=== PATIENT | male | born 1980 | race Two or more races ===

== ENCOUNTER 2019-02-19 05:37 | Day surgery (SDC) | payer OTHER ==
[2019-02-19] VITALS (12 sets, daily range): BP systolic 102–126; BP diastolic 59–86
[~2019-02-19] VITALS: Ht 172.7 cm; Wt 86.2 kg
[2019-02-19] MEDS ORDERED: oxyCONTIN 20mg tab ORAL ONE (06:00)
[2019-02-19] MEDS ORDERED: celeBREX 200mg Cap **SURGERY PATIENTS ONLY ORAL ONE (06:00)
[2019-02-19] MEDS ORDERED: ceFAZolin 1gm IVPB IVPB ONE ×2 (06:00)
[2019-02-19] MEDS ORDERED: NKM (06:07)
[2019-02-19] MEDS ORDERED: Bacitracin 50000 Units Vial ONE (07:01)
[2019-02-19] MEDS ORDERED: NeoSporin Gu Irrig 1ml Amp IRRIG ONE (07:01)
[2019-02-19] MEDS ORDERED: fentaNYL 100 mcg/2 mL IV ONE ×2 (07:18→07:52)
--- NOTE | 2019-02-19 07:27 | Pre-Procedure Note/Attestation ---
Pre-Procedure Note/Attestation Complete Prior to Procedure Planned Procedure: left Procedure Narrative: removal of screw Indications for Procedure Pre-Operative Diagnosis: sp orif left hip with nonuniun and painful hardware Attestation I attest that I discussed the nature of the procedure; its benefits; risks and complications; and alternatives (and the risks and benefits of such alternatives ), prior to the procedure, with the patient (or the patient's legal labor service representative). I attest that, if there was a reasonable possibility of needing a blood transfusion, the patient (or the patient's legal labor service representative) was given the [facility] standardized written summary, pursuant to the [place] Blood Safety Act ([place] Health and Safety Code # 1645, as amended). I attest that I re-evaluated the patient just prior to the surgery and that there has been no change in the patient's H&P, except as documented below: Tino Alfred MD Feb 19, 2019 07:27
[2019-02-19] MEDS ORDERED: HYDROmorphone 1mg/ml Carpuject SUBQ PRN (07:30)
[2019-02-19] MEDS ORDERED: Tylenol #3 tab (300mg/30mg) ORAL PRN (07:30)
[2019-02-19] MEDS ORDERED: LR 1000ml ONE (07:30)
[2019-02-19] MEDS ORDERED: D5 1/2NS 1,000 ML IV SCH (07:30)
[2019-02-19] MEDS ORDERED: HYDROcodone/Acetamin 5/325 tab ORAL PRN (07:30)
--- NOTE | 2019-02-19 07:30 | Operative Note - PDOC ---
Operative Note Operative Note Pre-op Diagnosis: sp orif left hip with nonuniun and painful hardware Procedure: see op report Post-op Diagnosis: same as pre-op plus Operative Findings: consistent w/pre-op dx studies Anesthesia: MAC Specimen: none Complications: none Condition: stable Estimated Blood Loss: none Implant(s) used?: No Tino Alfred MD Feb 19, 2019 07:30
[2019-02-19] MEDS ORDERED: Lidocaine 1% MPF 10mg/ml 5ml ONE (07:51)
[2019-02-19] MEDS ORDERED: Ketorolac 30mg Inj ONE (07:51)
[2019-02-19] MEDS ORDERED: Propofol 200mg/20ml IV ONE (07:51)
[2019-02-19] MEDS ORDERED: fentaNYL 100 mcg/2 mL IV PRN (08:15)
--- NOTE | 2019-02-19 08:21 | Anethesia Preoperative Eval ---
Anesthesia Pre-op PMH/ROS General Date of Evaluation: Feb 19, 2019 Time of Evaluation: 07:30 Anesthesiologist: jorge ASA Score: ASA 2 Mallampati Score Class I : Soft palate, uvula, fauces, pillars visible Class II: Soft palate, uvula, fauces visible Class III: Soft palate, base of uvula visible Class IV: Only hard plate visible Mallampati Classification: Class II Surgeon: reinaldo Diagnosis: lft thigh screw Surgical Procedure: removal left thigh screw Anesthesia History: none Social History: smoking, current smoker Family History: no anesthesia problems Allergies: Coded Allergies: No Known Allergies (Unverified , 02/18/19) Medications: see eMAR Patient NPO?: Yes NPO Date: Feb 19, 2019 NPO Time: 00:01 Past Medical History Cardiovascular: Denies: HTN, CAD, [place], valve dz, arrhythmia, other Pulmonary: Denies: asthma, COPD, REANNA, other Gastrointestinal/Genitourinary: Denies: GERD, CRI, ESRD, other Neurologic/Psychiatric: Denies: dementia, CVA, depression/anxiety, TIA, other Endocrine: Denies: DM, hypothyroidism, steroids, other HEENT: Denies: cataract (L), cataract (R), glaucoma, UNGA (L), UNGA (R), other Hematology/Immune: Denies: anemia, DVT, bleeding disorder, other Musculoskeletal/Integumentary: Denies: OA, RA, DJD, DDD, edema, other PMH Narrative: healthy PSxH Narrative: ORIF humerus fx Anesthesia Pre-op Phys. Exam Physician Exam Last Vital Signs Date Time Temp Pulse Resp B/P (MAP) Pulse Ox O2 Delivery O2 Flow Rate FiO2 02/19/19 06:15 Room Air 02/19/19 05:59 98.3 91 18 124/82 98 Constitutional: NAD Neurologic: CN 2-12 intact Cardiovascular: RRR Respiratory: CTA Gastrointestinal: S/NT/ND Airway Exam Mallampati Classification 2 Mallampati Score: Class II MO: full Neck: nomal ROM: full Dentures: no upper, no lower Anesthesia Pre-op A/P Studies Pre-op Studies: EKG - s Risk Assessment & Plan Plan: general Pre-Antibiotics Drug: ancf Given Within 1 Hr of Incision: Yes Time Given: 07:40 Aviva Gannon CRNA Feb 19, 2019 08:21
--- NOTE | 2019-02-19 09:56 | Immediate Post-Op Evaluation ---
Immediate Post-Op Evalulation Immediate Post-Op Evalulation Procedure: removal of left thigh screw Date of Evaluation: Feb 19, 2019 Time of Evaluation: 08:40 IV Fluids: 800 Blood Products: 0 Blood Pressure Systolic: 129 Blood Pressure Diastolic: 86 Pulse Rate: 100 Respiratory Rate: 14 O2 Sat by Pulse Oximetry: 98 Temperature (Fahrenheit): 97.6 Nausea: No Vomiting: No Complications none Patient Status: awake, reacts, patent Hydration Status: adequate Drug: ancef Given Within 1 Hr of Incision: Yes Time Given: 07:40 Zaria Santoro CRNA Feb 19, 2019 09:56
[2019-02-19] MEDS ORDERED: Kenalog-10 5ml Inj ONE (10:32)
--- NOTE | 2019-02-19 10:52 | 48 Hour Post Anesthesia Eval ---
Post Anesthesia Evaluation Procedure: removal of left thigh screw Date of Evaluation: Feb 19, 2019 Time of Evaluation: 10:52 Blood Pressure Systolic: 115 0: 60 Pulse Rate: 70 Respiratory Rate: 14 O2 Sat by Pulse Oximetry: 98 Airway: patent Nausea: No Vomiting: No Hydration Status: adequate Mental Status/LOC: patient returned to baseline Follow-up Care/Observations: na Post-Anesthesia Complications: none Follow-up care needed: N/A Aviva Gannon CRNA Feb 19, 2019 10:52
--- NOTE | 2019-02-19 10:57 | Diagnostic Imaging Report ---
INDICATION: Pain, intraoperative TECHNIQUE: Intraoperative imaging Fluoroscopy time: 7.3 seconds Total dose: 0.86435 mGym2 Total number of images: COMPARISON: None FINDINGS: Intraoperative images document removal of screw from distal femoral hardware IMPRESSION: Intraoperative imaging, as described
--- NOTE | 2019-02-19 19:15 | Operative Note - Dictated ---
DATE OF OPERATION: 02/19/2019 PREOPERATIVE DIAGNOSES: 1. Status post left intertrochanteric subtroch fracture with delayed union. 2. Left femur painful hardware. POSTOPERATIVE DIAGNOSES: 1. Status post left intertrochanteric subtroch fracture with delayed union. 2. Left femur painful hardware. PROCEDURE: Removal of distal locking screw. SURGEON: Tino Alfred M.D. ANESTHESIA: General. INDICATION FOR PROCEDURE: The patient is a pleasant gentleman, who underwent open intertrochanteric subtroch fracture went to the delayed union and is having pain in the distal thigh indicated to go for removal dynamization of the nail with removal of the distal locking screw. Risks, limitations, and complications of the procedure were discussed in detail. All questions were addressed. DESCRIPTION OF PROCEDURE: After informed consent was obtained, the patient was brought to the operative room and placed under general anesthesia. Left leg was prepped and draped in a sterile manner. Ancef was administered. Time-out was performed. The screw was identified using fluoroscopy. Lateral skin incision was then made. The screw lumber stacker driver was then placed and the screw was removed. Compression dressing was applied. The patient was awoken and taken to recovery room with stable vital signs. ESTIMATED BLOOD LOSS: None. COMPLICATIONS: None. SPECIMENS: None. Tino Alfred M.D. DR: SHANAE JOB#: [id number] CC: DELILAH
== END 2019-02-19 10:40 | disposition home or self-care (01) ==
LOC: SUR 05:37
DX: S72.142G Displaced intertrochanteric fracture of left femur, subsequent encounter for closed fracture with delayed healing (principal); T85.848A Pain due to other internal prosthetic devices, implants and grafts, initial encounter; X58.XXXA Exposure to other specified factors, initial encounter
CPT/HCPCS: 20680; 73552; 76000; J0690; J1885; J2405; J2704; J3010; J3301; 94003; 94150